=== PATIENT | male | born 1985 | race Hispanic/Latino ===

== ENCOUNTER 2021-01-20 14:01 | Emergency (ER) | payer SELFPAY ==
[2021-01-20] MEDS ORDERED: NALOXONE 2 MG/2 ML INJ IV ONE ×2 (14:09→15:32)
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
[2021-01-20 14:48] LABS: Basophils % (Auto) 0.4 % (0.0-1.8); Eosinophils # (Auto) 0.2 K/mm3 (0.0-0.4); Eosinophils % (Auto) 1.8 % (0.0-4.3); Hematocrit 41.1 % (35.5-45.6); Hemoglobin 13.9 gm/dl (11.8-15.2); Lymphocytes # (Auto) 1.8 K/mm3 (1.2-5.4); Lymphocytes % (Auto) 17.2 % (13.4-35.0); Mean Corpuscular HGB Conc 34 % (32-34); Mean Corpuscular Volume 96 fl (84-94); Monocytes # (Auto) 0.6 K/mm3 (0.0-0.8); Monocytes % (Auto) 5.6 % (0.0-7.3); Platelet Count 286 K/mm3 (140-440); Red Blood Count 4.29 M/mm3 (3.65-5.03); Red Cell Distribution Width 12.7 % (13.2-15.2)
[2021-01-20] MEDS ORDERED: NALOXONE 2 MG/2 ML INJ IV SCH (15:00)
[2021-01-20 15:07] LABS: Alanine Aminotransferase 9 units/L (7-56); Blood Urea Nitrogen 14 mg/dL (9-20); Calcium 8.6 mg/dL (8.4-10.2); Hemolysis Index 10
[2021-01-20] MEDS ORDERED: NALOXONE 2 MG/2 ML INJ ONE (15:25)
[2021-01-20 15:33] LABS: Amphetamine Screen,Urine Negative; Benzodiazepines Screen,Urine Negative; Cocaine Screen,Urine Negative; Methadone Screen,Urine Negative; Opiate Screen,Urine Negative
[2021-01-20 15:36] LABS: BUN/Creatinine Ratio 20; Bilirubin,Direct < 0.2 mg/dL (0-0.2)
[2021-01-20 16:04] LABS: Cannabinoid Screen,Urine Positive
[2021-01-20 18:33] VITALS: BP 122/74
== END 2021-01-20 18:40 | disposition home or self-care (01) ==
LOC: ED 14:01
DX: T39.1X1A Poisoning by 4-Aminophenol derivatives, accidental (unintentional), initial encounter (principal); Z79.899 Other long term (current) drug therapy; Y92.89 Other specified places as the place of occurrence of the external cause
CPT/HCPCS: 36415; 80048; 80076; 80307; 85025; 96374; 96376; 99284; J2310; 80320; G0480